=== PATIENT | male | born 1985 | race Caucasian/White ===

== ENCOUNTER 2018-07-04 12:04 | Emergency (ER) | payer SELFPAY ==
[~2018-07-04] VITALS: Ht 182.9 cm; Wt 95.3 kg
[2018-07-04 12:09] VITALS: BP 122/72
--- NOTE | 2018-07-04 12:12 | NUR ---
VSS, PT AMBULATED TO LOBBY
--- NOTE | 2018-07-04 13:35 | NUR ---
PT AMBULATED TO ER BED 09.
--- NOTE | 2018-07-04 13:45 | NUR ---
PT. BIB SISTER W/ C/O ABDOMINAL PAIN X 1 DAY. REPORTS VOMITING YESTERDAY X 2 EPISODES. REPORTS CHILLS, UNKNOWN IF HAD FEVER. PT. HAS ABD TENDER IN LOWER QUADRANTS. 8/10 SHARP PAIN IN LOWER ABD THAT RADIATES TO LOWER BACK. PT. STATES " I SAW SOME MUCOUS AND SOMETHING BLACK WHEN I THREW UP, I HAVE NOT THROWN UP TODAY AND IM NOT NAUSEOUS ANYMORE BUT THE PAIN IS STILL HERE". PT HAS RR EVEN ADN UNLABORED. WILL CONTINUE TO MONITOR. VSS. SAFETY PRECAUTIONS IN PLACE.
--- NOTE | 2018-07-04 14:40 | NUR ---
PT RESTING COMFORTABLY IN BED, RR EVEN AND UNLABORED. WILL CONTINUE TO MONITOR.
[2018-07-04 15:37] VITALS: BP 107/57
--- NOTE | 2018-07-04 15:37 | NUR ---
Patient discharged with v/s stable. Written and verbal after care instructions given and explained. Patient alert, oriented and verbalized understanding of instructions. Ambulatory with steady gait. All questions addressed prior to discharge. ID band removed. Patient advised to follow up with PMD. Rx of MOTRIN 800MG, ZOFRAN ODT 4MG, IMMODIUM given. Patient educated on indication of medication including possible reaction and side effects. Opportunity to ask questions provided and answered.
== END 2018-07-04 15:37 | disposition home or self-care (01) ==
LOC: MED 12:04
DX: R10.13 Epigastric pain (principal); R50.9 Fever, unspecified; R11.2 Nausea with vomiting, unspecified; R19.7 Diarrhea, unspecified; F17.210 Nicotine dependence, cigarettes, uncomplicated; Z90.49 Acquired absence of other specified parts of digestive tract
CPT/HCPCS: 99283